=== PATIENT | female | born 1940 | race Two or more races ===

== ENCOUNTER 2018-10-06 13:45 | Inpatient (IN) | payer OTHER, MEDICAID ==
[~2018-10-06] VITALS: Ht 149.9 cm; Wt 63.0 kg
[2018-10-06 13:48] VITALS: BP 128/76
--- NOTE | 2018-10-06 13:48 | NUR ---
PATIENT BIB EMS TO BED 10 AT THIS TIME.
--- NOTE | 2018-10-06 13:48 | NUR ---
PT BIBA TO ED FOR EVALUATION OF LOST APPETITE. PT DX.FAILURE TO THRIVE X 2 DAYS. REFUSED TO EAT AND DRINK. HX.DM, OK, AHD. PT ALERT, NON VERBAL, GCS 13, PUPILS PERRL 4/4 MM. RESPIATIONS EVEN AND UNALBORED, BL LUNG CLEAR. ON O2 2L/M VIA NC, TACHYNIC RR 30'S. SKIN WARM/PALE/DRY, +PMSC. BUTTOCK OPEN WOUND COVER WITH DRY DRESSING, RT LEG CHRONIC WOUND NOTED. ABDOMEN SOFT, NON DISTENDED, ACTIVE BOWEL SOUND X4. CARDAIC MONITOR ST 120'S , BP WNL. AFEBRILE. MADE AWARE OF PT STATUS. WILL CONTINEU TO MONITOR
[2018-10-06] MEDS ORDERED: NACL 0.9% 1,000 ML IV ONE ×2 (14:29→16:10)
[2018-10-06 15:27] LABS: BASOPHILS % (AUTO) 0.3 % (0.0-2.0); HEMATOCRIT 35.9 % (36-48); HEMOGLOBIN 11.1 g/dL (12.0-16.0); LYMPHOCYTES # (AUTO) 0.8 K/uL (2.5-16.5); LYMPHOCYTES % (AUTO) 6.1 % (20.5-51.1); MEAN CORPUSCULAR HEMOGLOBIN 29 pg (27-31); MEAN CORPUSCULAR HGB CONC 31 g/dL (33-37); MONOCYTES # (AUTO) 0.4 K/uL (0.8-1.0); NEUTROPHILS # (AUTO) 11.3 K/uL (1.8-7.7); NEUTROPHILS % (AUTO) 90.6 % (42.2-75.2); PLATELET COUNT (AUTO) 357 K/uL (140-450); RED BLOOD CELL COUNT(AUTO) 3.82 MIL/uL (4.20-5.40); RED CELL DISTRIBUTION WIDTH 19.1 % (11.6-13.7); WHITE BLOOD COUNT (AUTO) 12.5 K/uL (4.8-10.8)
[2018-10-06 15:38] LABS: PROTHROMBIN TIME 11.1 secs (10.8-13.4)
[2018-10-06 15:43] LABS: ANION GAP 21.9 (8-16); ASPARTATE AMINOTRANSFERASE 145 U/L (15-37); CARBON DIOXIDE 18.2 mmol/L (21-32); CHLORIDE 101 mmol/L (98-107); CREATININE 1.3 mg/dL (0.6-1.3); GLUCOSE 173 mg/dL (74-106); LIPASE 34 U/L (73-393); POTASSIUM 5.1 mmol/L (3.5-5.1); SODIUM SERUM 136 mmol/L (136-145); TOTAL BILIRUBIN 0.6 mg/dL (0.0-1.0); UREA NITROGEN, BLOOD 21 mg/dL (7-18)
[2018-10-06 15:44] LABS: APPEARANCE,URINE SL CLOUDY (CLEAR); BILIRUBIN,URINE NEGATIVE (NEGATIVE); BLOOD, URINE 3+ (NEGATIVE); COLOR,URINE YELLOW (YELLOW); LEUKOCYTE ESTERASE ,URINE TRACE (NEGATIVE); NITRITE, URINE POSITIVE (NEGATIVE); UGLUCOSE 1+ (NEGATIVE)
[2018-10-06 16:00] LABS: RBC,URINE TOO NUMEROUS TO COUN /HPF (0-5)
--- NOTE | 2018-10-06 16:00 | NUR ---
PT REMAINS GCS 13, RESPIATIONS EVEN AND UNLABORED. MILLER FIRST ST HR 120'S, FEBRILE. MADE AWARE. ANTIPYRETIC GIVEN ORDERED. WILL CONTINUE TO MONITOR
[2018-10-06 16:01] LABS: WBC,URINE TOO MANY TO COUNT /HPF (0-5)
[2018-10-06] MEDS ORDERED: PIPERACILLIN/TAZOBACTAM 3.375 GM in DEXTROSE 5% 50 ML IV ONE (16:10)
[2018-10-06] MEDS ORDERED: ACETAMINOPHEN 650 MG SUPP RC ONE (16:20)
[2018-10-06] MEDS ORDERED: PIPERACILLIN/TAZOBACTAM 3.375 GM VIAL IV ONE (16:22)
--- NOTE | 2018-10-06 17:30 | NUR ---
Patient will be admitted to care of . Admited to [facility]. Will go to room 124B. Belongings list completed. Report to DELANEY TRINH.
--- NOTE | 2018-10-06 17:40 | NUR ---
RECEIVED PT FROM ER NURSE SHAYNA. PT IS AWAKE, LETHARGIC, OX1, DOES NOT FOLLOW COMMAND. DX UTI. PT HAS A PHILIP CATH WHICH WAS PLACED IN ER, WROTE TODAY'S DATE ON THE COLLECTION BAG. VITALS TAKEN, MRSA SWAB DONE. IV NOTED ON THE LEFT HAND, 22G, WRAPPED UNDER GAUZE, PATENT, FLUSHED FINE, AND NO SWELLING. SECOND IV ON LEFT FA, 24G FROM [facility], NO LONGER GOOD. WILL DC LATER. PT O2 SAT 100%, ON 2L O2 NC. PT HAS TACHYPNEA 26/MIN, LUNG SOUNDS CLEAR, BOWEL SOUND HYPOACTIVE. FALL RISK PROTOCOL INITIATED. BED IN LOWEST POSITION. ORIENTED PT AND FAMILY MEMBERS TO ROOM AND CALL LIGHT. PT ON TELE MONITORING. WILL CONTINUE TO MONITOR.
[2018-10-06 17:44] VITALS: BP 131/82
--- NOTE | 2018-10-06 17:52 | NUR ---
DR DAVIS CALLED, RECEIVED ORDERS FOR MEDICATIONS AND CODE STATUS.
[2018-10-06] MEDS ORDERED: ACETAMINOPHEN 325 MG TAB PO PRN (17:55)
[2018-10-06] MEDS ORDERED: INSULIN LISPRO SLIDING SCALE 100 UNITS/ML VIAL SUBQ PRN (18:05)
[2018-10-06] MEDS: NACL 0.9% 1,000 ML IV SCH (18:16)
[2018-10-06] MEDS ORDERED: MELA5TAB6 PO (18:48)
[2018-10-06] MEDS ORDERED: HYDR-5122 PO (18:48)
[2018-10-06] MEDS ORDERED: ACET-2619 PO (18:48)
[2018-10-06] MEDS ORDERED: BACI1TAB3 PO (18:48)
[2018-10-06] MEDS ORDERED: VITD1000 PO (18:53)
[2018-10-06] MEDS ORDERED: SYN.05 PO (18:53)
[2018-10-06] MEDS ORDERED: FERR325E14 PO (18:53)
[2018-10-06] MEDS ORDERED: LEVEMIR SUBQ (18:53)
--- NOTE | 2018-10-06 19:20 | NUR ---
ENDORSED PT TO FUR DRY CLEANER RN, PT RESTING IN BED.
--- NOTE | 2018-10-06 19:35 | NUR ---
RECEIVED BEDSIDE REPORT FROM DAY SHIFT NURSE. PATIENT AWAKE, LETHARGIC, AOX1. RESPIRATION EVEN UNLABORED ON 2L NC SATING 91-93%. PATIENT IS TACHYCARDIA. SKIN IS WARM AND DRY. SACRAL PRESSURE NOTED. BLE PRESSURE ULCER NOTED. IV PATENT AND INTACT. PHILIP CATHETER NOTED DRAINING DARK YELLOW URINE. PLAN OF CARE WAS DISCUSSED. OBTAINED INFORMATION FROM [facility] REGARDING PATIENT PMH. ALL SAFETY MEASURES IN PLACE. BED IS AT LOW POSITION. CALL LIGHT WITHIN REACH. WILL CONTINUE TO MONITOR
[2018-10-06 20:00] VITALS: BP 135/82
--- NOTE | 2018-10-06 21:00 | NUR ---
INITIAL ASSESSMENT DONE. VITALS WERE TAKEN. PATIENT IS TACHYCARDIAC. MD IS AWARE, WILL CONTINUE TO MONITOR
[2018-10-06] MEDS: BLOOD GLUCOSE MONITORING 1 DEV DEV FS SCH (21:03)
--- NOTE | 2018-10-06 22:00 | NUR ---
PATIENT IS MORE ALERT AND AWAKE. OFFERED FLUIDS AND TOLERATED IT WELL. ABLE TO ANSWER YES AND NO QUESTION. WILL CONTINUE TO MONITOR
--- NOTE | 2018-10-06 23:00 | NUR ---
PATIENT SLEEPING RESPIRATION EVEN UNLABORED ON 2L NC. NO DISTRESS NOTED. WILL CONTINUE TO MONITOR
[2018-10-07] VITALS: BP 103/72
--- NOTE | 2018-10-07 | NUR ---
VITALS WERE TAKEN. PATIENT MOANING AND RESTLESS. ASKED IF SHES IN PAIN. SHE SAID NO. WILL CONTINUE TO MONITOR
[2018-10-07] MEDS: PIPER/TAZO 2.25GM/D5W PREMIX 50 ML IV SCH ×4 (00:04→18:00)
--- NOTE | 2018-10-07 02:00 | NUR ---
PATIENT SLEEPING RESPIRATION EVEN UNLABORED ON 2L NC. NO DISTRESS NOTED. WILL CONTINUE TO MONITOR
[2018-10-07 04:00] VITALS: BP 130/73
--- NOTE | 2018-10-07 04:00 | NUR ---
VITALS WERE TAKEN. PATIENT STILL TACHYCARDIAC, NO DISTRESS NOTED. WILL CONTINUE TO MONITOR
--- NOTE | 2018-10-07 05:26 | NUR ---
PROVIDED GOOD PERICARE AND CATHETER CARE.
[2018-10-07] MEDS: BLOOD GLUCOSE MONITORING 1 DEV DEV FS SCH ×4 (06:14→20:51)
--- NOTE | 2018-10-07 06:15 | NUR ---
CHECKED PATIENT BLOOD GLUCOSE. PATIENT BLOOD GLUCOSE 11. ADMINISTERED D50. PATIENT ABLE TO FOLLOW COMMAND AND DRINK 1 CUP OF ORANGE JUICE WITH SUGAR. WILL CONTINUE TO MONITOR.
[2018-10-07] MEDS ORDERED: DEXTROSE 50% 50 ML SYR IVP ONE (06:16)
--- NOTE | 2018-10-07 06:40 | NUR ---
RECHECKED PATIENT BLOOD GLUCOSE. PATIENT BLOOD GLUCOSE 10. ADMINISTERED ANOTHER DOSE OF D50. PATIENT ABLE TO FOLLOW COMMAND AND DRINK 1 CUP OF ORANGE JUICE WITH SUGAR. WILL CONTINUE TO MONITOR
[2018-10-07] MEDS: DEXTROSE 50% 50 ML SYR IVP PRN ×2 (06:49→20:51)
--- NOTE | 2018-10-07 06:53 | NUR ---
RECHECKED PATIENT BLOOD GLUCOSE. PATIENT BLOOD GLUCOSE NOW 60mg/dL. PATIENT STILL ABLE TO FOLLOW COMMANDS, WILL CONTINUE TO MONITOR
[2018-10-07] MEDS: NACL 0.9% 1,000 ML IV SCH (07:15)
[2018-10-07 07:22] LABS: HEMATOCRIT 29.9 % (36-48); HEMOGLOBIN 8.8 g/dL (12.0-16.0); MEAN CORPUSCULAR HEMOGLOBIN 29 pg (27-31); MEAN CORPUSCULAR HGB CONC 29 g/dL (33-37); MEAN CORPUSCULAR VOLUME 100.2 fL (80-94); PLATELET COUNT (AUTO) 167 K/uL (140-450); RED BLOOD CELL COUNT(AUTO) 2.98 MIL/uL (4.20-5.40); WHITE BLOOD COUNT (AUTO) 18.5 K/uL (4.8-10.8)
--- NOTE | 2018-10-07 07:24 | NUR ---
ENDORSED PATIENT TO DAY SHIFT NURSE FOR CONTINUITY OF CARE. PATIENT CONDITION STABLE.
--- NOTE | 2018-10-07 07:25 | NUR ---
RECEIVED BEDSIDE REPORT FROM ZIGGY CAAL. PATIENT ON TELE MONITOR AND STANDARD PRECAUTIONS IN PLACE. PATIENT AAOX2, LETHARGIC. L LOWER LEG ULCER, R LOWER LEG ULCER, AND SACRAL ULCER. FALL RISK PROTOCOL IN PLACE. PATIENT WITH PHILIP CATHETER INSERTED ON 10/06/18, SECURE AND IN PLACE. PATIENT ON 2 L O2 NC. IV ON L H 22 G INFUSING NS AT 75, IV ASYMPTOMATIC PATENT AND INTACT. BED IN LOW POSITION, CALL LIGHT WITHIN REACH, SIDE RAILS X2 UP
[2018-10-07 07:27] LABS: ANION GAP 33.6 (8-16); CHLORIDE 101 mmol/L (98-107); CREATININE 1.9 mg/dL (0.6-1.3); GLUCOSE 266 mg/dL (74-106); SODIUM SERUM 136 mmol/L (136-145); UREA NITROGEN, BLOOD 29 mg/dL (7-18)
[2018-10-07 07:29] LABS: CARBON DIOXIDE 7.7 mmol/L (21-32); POTASSIUM 6.3 mmol/L (3.5-5.1)
[2018-10-07 08:00] VITALS: BP 143/82
[2018-10-07 08:23] LABS: LYMPHOCYTES % (MANUAL) 7 % (20-46); MONOCYTES % (MANUAL) 3 % (5-12)
--- NOTE | 2018-10-07 08:35 | NUR ---
NONREBREATHER MASK APPLIED TO PATIENT SINCE O2 FLUCTUATES FROM 60% TO 98%. INSTRUCTED PATIENT TO TAKE DEEP BREATHS THROUGH THE NOSE AND CLOSE HER MOUTH. PATIENT FOLLOWS COMMANDS, WILL CONTINUE TO MONITOR
--- NOTE | 2018-10-07 08:38 | NUR ---
PATIENT HAS BEEN SCREENED AND CATEGORIZED HIGH NUTRITION RISK. PATIENT WILL BE SEEN WITHIN 1-2 DAYS OF ADMISSION. 10/07/18-10/08/[address]
--- NOTE | 2018-10-07 08:50 | NUR ---
NOTIFIED DR. DAVIS OF O2 SAT RANGING FROM 60%-98% AND PATIENT ON NONREBREATHER MASK AT 10 L, H&H OF 8.[address] DAVIS STATED DO NOT PUT HER ON BIPAP. NO OTHER ORDERS GIVEN
[2018-10-07] MEDS ORDERED: ENOXAPARIN 30 MG/0.3 ML SYR SUBQ SCH (09:00)
[2018-10-07] MEDS: DEXTROSE 5% 1,000 ML IV SCH ×2 (09:06→22:22)
--- NOTE | 2018-10-07 09:14 | NUR ---
ADMINISTERED SCHEDULED MEDS. PATIENT TOLERATED WELL
--- NOTE | 2018-10-07 11:30 | NUR ---
WOUNDS CLEANSED AND DRESSINGS APPLIED WITH WOUND CARE NURSEFATOUMATA. HEEL PROTECTORS APPLIED
[2018-10-07 12:00] VITALS: BP 128/89
--- NOTE | 2018-10-07 12:38 | NUR ---
ADMINISTERED SCHEDULED MEDS. ON NONREBREATHER MASK, NO DISTRESS NOTED. FAMILY AT BEDSIDE
--- NOTE | 2018-10-07 13:05 | NUR ---
WOUND CARE EVALUATION NOTE: REASON FOR EVALUATION: LOW KIRK SCALE SACRALCOCCYX AND BLE WOUNDS SKIN ASSESSMENT DONE WITH THIS 78 Y/O FEMALE PT ADMITTED FROM [facility] TO [facility] WITH INITIAL DX ALOC. PAST MEDICAL HX INCLUDES PNA, DM, ANEMIA AND CHRONIC BLE VASCULAR WOUNDS. ALL ABOVE INFORMATION OBTAINED FROM ADMISSION H&P. I HAVE ASSESSED PT�S BLE WOUND PREVIOUSLY AT [facility], PT HAS HX OF DEBRIDEMENT TO BLE VASCULAR ULCER. PT IS AWAKE. SKIN IS COLD AND DRY, BLE NO HAIR GROWTH, NO EDEMA. DORSAL PEDAL PULSES DIMINISHED. INCONTINENT OF BOWEL. F/C PATENT WITH SMALL AMOUNT YELLOW COLOR URINE OUT PUT OBSERVED. PLAN OF CARE DISCUSSED WITH PRIMARY RN. AND PT. NEED REINFORCE TEACHING ON PT.FAMILY MEMBER AT BED SIDE AND QUESTIONS OF PT�S CONDITION, EXPLAIN TO SISTERS(VISITORS) TO GET MORE INFORMATION ABOUT PT�S CONDITION FROM ASSISTANT BRANCH OPERATIONS MANAGER DUE TO HIPAA. PER CHARGE NURSE, FAMILY AND PRIMARY PHYSICIAN EVALUATING FOR HOSPICE COMFORT CARE. INTEGUMENTARY: -BILATERAL UPPER EXTREMITIES MULTIPLE ECCHYMOSIS, SKIN INTACT -INCONTINENT ASSOCIATE DERMATITIS (IAD) TO: B/L GROINS, TO KODY ANAL, SKIN REDNESS -PRESSURE ULCER INJURY STAGE 3, SACROCOCCYX, BUTTERFLY SHAPE, 2X2X0.3XCM,WOUND BED 100 % GRANULATING TISSUE, SMALL AMOUNT SANGUINOUS DRAINAGE, MILD ODOR, KODY-WOUND SKIN MACERATED, SURROUNDING SKIN DTI EXTENDED TO RIGHT AND LEFT BUTTOCK INDICATED FURTHER DAMAGE -LEFT LATERAL LEG VASCULAR ULCER WITH HX OF S/P DEBRIDEMENT 3X1.5X0.2 CM, WOUND BED 100 % GRANULATING TISSUE, SMALL AMOUNT SEROUS DRAINAGE, KODY-WOUND SKIN INTACT, NO ODOR. -LEFT TOES X 5 DIGITS AND RIGHT 4TH AND 5TH TOES DTI -RIGHT MEDIAL LEG VASCULAR ULCER WITH HX OF S/P DEBRIDEMENT 13X6CM WOUND BED 90% YELLOW SLOUGH,10% BROWN SLOUGH TISSUE, WOUND EDGE BLACK WITH MILD ODOR AND SMALL AMOUNT OF PURULENT DRAINAGE, KODY WOUND SKIN DRY AND SCALY. -RIGHT LATERAL LEG VASCULAR ULCER WITH HX OF S/P DEBRIDEMENT 10X5CM WOUND BED 70% SCATTERED YELLOW SLOUGH, 30 % GRANULATING TISSUE WOUND EDGE WHITE FUNGAL LIKED TISSUE WITH MILD ODOR AND SMALL AMOUNT OF PURULENT DRAINAGE, KODY WOUND SKIN DRY AND SCALY -RIGHT LATERAL KODY-MALLEOLUS VASCULAR ULCER WITH 6X5CM WOUND BED 100% YELLOW DRY SOFT SLOUGH, NO ODOR, KODY WOUND SKIN DRY AND SCALY -RIGHT AND LEFT HEEL NON BLANCHABLE REDNESS WITH DORSAL FEET MOTTLING RECOMMENDATIONS: -APPLY HYDRAGUARD TO R/L UPPER ARMS, B/L GROINS, INNER BUTTOCKS EXTENDED TO KODY ANAL, SKIN REDNESS BID AND PRN IF SOILING - CLEANSE RIGHT BUTTOCK AND SACRALCOCCYX WITH WOUND CLEANSING SOLUTION AND APPLY THERAHONEY GEL TO WOUND BED AND Z-GUARD TO KODY-WOUND, COVER WITH OPTIFOAM DRESSING QD AND PRN IF SOILING - CLEANSE LEFT AND RIGHT LEGS MULTIPLE VASCULAR ULCER WITH WOUND CLEANSING SOLUTION AND APPLY THERAHONEY GEL WITH ADAPTIC DRESSING TO WOUND BED AND COVER WITH DRY DRESSING QMWF AND PRN IF SOILING -APPLY SKIN PREP TO LEFT TOES X 5 DIGITS AND RIGHT 4TH AND 5TH TOES DTI BID AND LEAVE IT OPEN TO AIR -APPLY HEEL PROTECTORS TO BOTH HEELS AT ALL TIMES -OFFLOAD BILATERAL HEELS BY PLACING PILLOWS UNDER CALVES UNLESS OTHERWISE CONTRAINDICATED -PRESSURE REDISTRIBUTION SURFACE THERAPY -TURN AND REPOSITION Q2H, OFFLOAD SACRALCOCCYX AND BUTTOCKS BY TURNING RIGHT AND LEFT -CONTINUE TO FOLLOW RD RECOMMENDATIONS ALL ABOVE RECOMMENDATIONS DISCUSSED WITH PRIMARY RN. WILL FOLLOW UP PT Q7-10 DAYS. PLEASE CONTACT WOUND CARE NURSE FOR ANY QUESTION AND CHANGE OF WOUND CONDITION.
--- NOTE | 2018-10-07 13:54 | NUR ---
S.T. BEDSIDE SWALLOW EVAL COMPLETED See report. Pt presents with severe oropharyneal dysphagia c/b inability to masticate soft solids, form oral bolus and propel posteriorly, significantly delayed pharyngeal swallow resonse despite max verbal and tactile cueing. Pt is at high risk for aspiration. Recommend: 1) Strict NPO w/ non-oral means of nutrition, hydration and meds. 2) Reassess in 3 days if pt remains D/w family members (brother and [id number]) in detail, as well as with ZIGGY Pak and insurance and benefits clerk Ingrid. Time [phone]
--- NOTE | 2018-10-07 15:15 | NUR ---
LATE ENTRY: CONTACTED WALLACE FROM [facility] REGARDING REFERRAL. ASKED HER IF PATIENT HAD BEEN UNDER THEIR CARE PRIOR TO THIS ADMISSION, STATED THAT THIS IS A NEW REFERRAL. SHE ALSO STATED THAT PATIENT IS ELIGIBLE FOR THEIR SERVICES AND THEY ARE CONTRACTED WITH [employer] [place] [employer]. SHE ALSO STATED THAT SHE WILL COME DOWN AND TALK TO THE FAMILY. REFERRAL FAXED TO [phone].
--- NOTE | 2018-10-07 15:20 | NUR ---
LEFT MESSAGE TO WALLACE OF [facility] TO FOLLOW UP REGARDING FAXED REFERRAL.
--- NOTE | 2018-10-07 15:35 | NUR ---
FAMILY AT BEDSIDE, ON NONREBREATHER MASK AT 10 L
[2018-10-07 16:00] VITALS: BP 132/72
--- NOTE | 2018-10-07 16:27 | NUR ---
10/07/18 RD INITIAL ASSESSMENT COMPLETED PLEASE REFER TO NUTRITION ASSESSMENT UNDER CARE ACTIVITY FOR ESTIMATED NUTRITIONAL NEEDS. 1. CONSIDER NPO PER SWALLOW EVALUATION 2. CONSIDER ENTERAL NUTRITION VIA NG-TUBE OR OG-TUBE A SOURCE OF NUTRITION 3. RECOMMEND VITAMIN C 500 MG BID AND MULTIVITAMIN ONCE DAILY FOR PRESSURE ULCERS 4. RD TO FOLLOW-UP 2-3 DAYS, HIGH RISK CHAO DRAPER, RD
--- NOTE | 2018-10-07 16:31 | NUR ---
SPOKE TO WALLACE OVER [phone], SHE STATED THAT SHE IS ON HER WAY TO MEET WITH THE SON AND SOON EVERYTHING IS SETTLED SHE WILL COORDINATE WITH THE CHARGE NURSE REGARDING TRANSPORTATION.
--- NOTE | 2018-10-07 17:22 | NUR ---
DR. DAVIS ORDERED MORPHINE DRIP FOR COMFORT MEASURES STARTING AT 2 MG/HR, MAX 15 MG/HR AND TO INCREASE BY 1 MG/HR FOR SOB, MOANS, GRIMACING.
[2018-10-07] MEDS: MORPHINE SULFATE 100 MG in NACL 0.9% 90 ML IV PRN ×2 (18:32→21:05)
--- NOTE | 2018-10-07 18:37 | NUR ---
MORPHINE DRIP STARTED, ZOSYN NOT GIVEN BECAUSE MORPHINE IS INFUSING AT THIS TIME AND PATIENT WILL BE DISCHARGED TO HOSPICE TODAY
--- NOTE | 2018-10-07 19:25 | NUR ---
BEDSIDE REPORT GIVEN TO ZIGGY CAAL. NURSE AWARE TO HEP LOCK PATIENT WHEN DISCHARGED AND TO WASTE MORPHINE WHEN PATIENT GOES HOME. WALLACE OF [facility] IS STILL SPEAKING WITH FAMILY OUTSIDE OF ROOM REGARDING PLAN OF CARE, SHE STATED SHE WILL UPDATE NURSE AFTERWARDS
--- NOTE | 2018-10-07 19:35 | NUR ---
RECEIVED BEDSIDE REPORT FROM DAY SHIFT NURSE. PATIENT AWAKE, LETHARGIC, AOX1. PATIENT IS ON IV MORPHINE DRIP FOR COMFORT. RESPIRATION EVEN UNLABORED ON 10 L NONREBREATHER MASK SATING 91-93%. PATIENT IS TACHYCARDIC. SKIN IS WARM AND DRY. ALL PRESSURE ULCER AREA NOTED . IV PATENT AND INTACT. PHILIP CATHETER NOTED DRAINING DARK YELLOW URINE. PLAN OF CARE WAS DISCUSSED. ALL SAFETY MEASURES IN PLACE. BED IS AT LOW POSITION. CALL LIGHT WITHIN REACH. WILL CONTINUE TO MONITOR
[2018-10-07 20:00] VITALS: BP 139/79
--- NOTE | 2018-10-07 20:50 | NUR ---
PATIENT IS MOANING AND RESTLESS. CHECKED BLOOD GLUCOSE. PATIENT BLOOD GLUCOSE 10mg/dL. ADMINISTERED PRN D50 PER ORDER. WILL CONTINUE TO MONITOR
--- NOTE | 2018-10-07 21:00 | NUR ---
PATIENT ON NONREBREATHER. PULSE OX SITE AND PROBE CHANGE. PATIENT SATURATING 100%. PLACED PATIENT ON OXYMIZER AT 8L, PULSE OX SAT REMAINS 100%. CONTINUED TO TITRATE OXYGEN SLOWLY DOWN TO 4L. PULSE OX SAT 100%. RN AT BEDSIDE AND NOTIFIED. NO RESPIRATORY DISTRESS NOTED AT THIS TIME. WILL CONTINUE TO MONITOR.
--- NOTE | 2018-10-07 21:05 | NUR ---
PATIENT MOANING AND RESTLESS. INCREASED IV MORPHINE DRIP PER ORDER. PATIENT IS NOW ON 3ML/HR MORPHINE DRIP. WILL CONTINUE TO MONITOR
--- NOTE | 2018-10-07 21:10 | NUR ---
SPOKE TO WALLACE PATIENT IS GETTING PICKED UP AROUND [phone] BY GENERAL. AWAITING FOR [employer]YWOOD MATCHER
--- NOTE | 2018-10-07 21:20 | NUR ---
CHECKED PATIENT. NO DISTRESS NOTED. PATIENT SLEEPING COMFORTABLY. RESPIRATION EVEN UNLABORED ON 4L OXYMIZER. SATING 100%. WILL CONTINUE TO MONITOR
--- NOTE | 2018-10-07 21:20 | NUR ---
PATIENT BLOOD GLUCOSE 110mg/dL. WILL CONTINUE TO MONITOR
--- NOTE | 2018-10-07 22:10 | NUR ---
PATIENT DISCHARGED 50ML OF MORPHINE WASTED WITH ANOTHER NURSE.
--- NOTE | 2018-10-07 22:10 | NUR ---
PATIENT LEFT THE FACILITY VIA GURNEY WITH [facility]. PATIENT HEPLOCK AND CONDITION STABLE.
[2018-10-08] MEDS ORDERED: HYDRAGUARD CREAM TP SCH (01:00)
[2018-10-08] MEDS ORDERED: Z-GUARD PASTE TP SCH (01:00)
[2018-10-08] MEDS ORDERED: THERAHONEY GEL 42.5 GM TP SCH (13:00)
== END 2018-10-07 23:20 | disposition hospice, inpatient (51) | DRG 871 ==
LOC: MED 13:45 → MTU 17:00 → OBSVTOIN 10-07 12:11
PROVIDERS: ADMIT Internal Medicine Pulmonary Disease; ATTEND Internal Medicine Pulmonary Disease
DX: A41.9 Sepsis, unspecified organism (principal); I21.4 Non-ST elevation (NSTEMI) myocardial infarction; N39.0 Urinary tract infection, site not specified; L97.919 Non-pressure chronic ulcer of unspecified part of right lower leg with unspecified severity; D63.8 Anemia in other chronic diseases classified elsewhere; E03.9 Hypothyroidism, unspecified; E11.9 Type 2 diabetes mellitus without complications; Z66 Do not resuscitate; Z79.4 Long term (current) use of insulin; L98.429 Non-pressure chronic ulcer of back with unspecified severity
CPT/HCPCS: 51702; 96361; 96365; 99285; G0378; 36415; 71045; 80048; 80053; 81001; 82948; 83605; 83690; 83880; 84484; 85025; 85610; 87040; 87081; 87086; 87186; 92610; 93005; J1650; J1815; J2270; J2543; J7030; J7060; Q0092